=== PATIENT | female | born 1970 | race American Indian/Alaskan Native ===

== ENCOUNTER 2020-05-04 10:16 | Emergency (ER) | payer SELFPAY ==
[2020-05-04 10:30] VITALS: PULSE 82; RESP 24; TEMP 36.8; O2SAT 94; BMI 38.9
[2020-05-04 10:50] VITALS: BP 145/83; PULSE 81; RESP 20; O2SAT 93
--- NOTE | 2020-05-04 10:51 | XR_ITS ---
WS: [id number] Portable AP upright chest, 05/04/2020 Clinical Data: dyspnea/cough Comparison: None. Findings: No nodules, masses or effusions are seen. The heart is enlarged. The pulmonary vascularity is not increased. No pneumonia or pneumothorax is seen. XR/XR chest 1V portable [id number] Impression: Cardiomegaly.
[2020-05-04 11:04] LABS: ABG PCO2 39.7 mmHg (35-45); ABG PH Result 7.46 (7.35-7.45); Arterial Blood Gas Hematocrit 39.9 % (37-47); Blood Gas Allen Test Pos; Blood Gas Sample Site Radial, right; Blood Gas Sample Type Arterial; Carboxyhemoglobin 1.7 %THgb (0.4-20.1); HCO3 ABG 28.2 mmol/L (22-26); HGB O2 Sat 95.1 % (95-100); Ionized Calcium Level - ABG 1.2 mmol/L (1.1-1.4); Methemoglobin 0.8 % (0.4-1.5); Oxygen Saturation ABG 97.5; PO2 ABG 78.6 mmHg (80.0-100.0); Potassium Level - ABG 3.1 mmol/L (3.5-5.0)
[2020-05-04 11:08] LABS: Basophils # 0.1 10^3/uL (0.0-0.1); Basophils % 0.7 %; Eosinophils # 0.6 10^3/uL (0.0-0.8); Eosinophils % 5.8 %; Hematocrit 40.1 % (37.0-47.0); Lymphocytes # 1.7 10^3/uL (0.8-4.8); Lymphocytes % 17.5 %; Mean Corpuscular HGB Conc 32.4 g/dL (30.0-36.0); Mean Corpuscular Hemoglobin 27.6 pg (28.0-34.0); Mean Corpuscular Volume 85.1 fL (81-99); Mean Platelet Volume 8.8 fL (7.4-10.4); Monocytes # 0.5 10^3/uL (0.2-0.9); Monocytes % 4.8 %; Neutrophils # 6.64 10^3/uL (1.8-7.7); Neutrophils % 70.7 %; Nucleated Red Blood Cells % 0 %; Platelet Count 278 10^3/cmm (130-400); Red Blood Count 4.71 10^6/uL (4.1-5.3); Red Cell Distribution Width 14.5 % (12.1-15.1); White Blood Count 9.4 10^3/uL (4.0-10.0)
[2020-05-04 11:27] LABS: Alanine Aminotransferase 34 U/L (0-33); Albumin Level 4.3 g/dL (3.5-5.2); Alkaline Phosphatase 128 IU/L (35-105); Anion Gap 14.1 (5-19); Aspartate Amino Transferase 27 U/L (0-32); Blood Urea Nitrogen 11 mg/dL (6-20); Calcium 9.6 mg/dL (8.5-10.5); Carbon Dioxide 27 mmol/L (22-29); Chloride 96 mmol/L (98-107); Globulin 3.1 g/dL (1.3-4.6); Glomerular Filtration Rate 105.4 mL/min (90-130); Glucose 262 mg/dL (65-115); Osmolality Calculated 286 mOsm/kg (285-295); Potassium 3.1 mmol/L (3.5-5.1); Sodium 134 mmol/L (136-145); Total Bilirubin 0.2 mg/dL (0.15-1.2); Total Protein 7.4 g/dL (6.6-8.7)
--- NOTE | 2020-05-04 11:31 | ED_ITS ---
HPI - SOB/Dyspnea General: Chief Complaint: Shortness of Breath/Dyspnea Stated Complaint: SOB/Tightness Time Seen by Provider: 05/04/20 10:34 History of Present Illness: HPI Narrative: 49-year-old female presents to the emergency room with complaints of shortness of breath. Patient has chronic COPD she usually uses inhalers but she is not been able to tolerate inhaled corticosteroids so she has been on theophylline. She recently moved here and was not able to get established with a wound with been off her medicines for period of time. She denies any productive cough, no fever. MD elicited complaint: shortness of breath and cough Pertinent past history: COPD Onset (ago): week(s) Timing: constant Severity: moderate Exacerbating factors: exertion and coughing Relieving factors: rest and bronchodilators Known history of: COPD Associated symptoms: Reports chest congestion and cough; Deny abdominal pain, chest pain, diaphoresis, dizziness, extremity pain, fever(s), hemoptysis, lightheadedness, myalgias, nausea, orthopnea, palpitations, paresthesias, polydipsia, polyuria, rash, sense of impending doom, syncope or vomiting Treatment prior to arrival: none Review of Systems Const: Denies: fever(s) or diaphoresis ENMT: Denies: throat pain, ear or mastoid pain, nasal discharge or nasal congestion Card: Denies: chest pain, palpitations, lightheadedness, syncope or orthopnea Resp: Reports: chest congestion; Denies: hemoptysis GI: Denies: abdominal pain, nausea or vomiting : Denies: flank pain, difficulty voiding, dysuria, urinary frequency or urinary urgency Musc: Denies: extremity pain Skin/Breast: Denies: rash or pruritus Neuro: Denies: dizziness Endo: Denies: polyuria or polydipsia Physical Exam Const: COMMON NORMALS: no acute distress GENERAL APPEARANCE: cooperative and comfortable ORIENTATION/CONSCIOUSNESS: Yes awake, Yes oriented to person, Yes oriented to place and Yes oriented to time Neck/C-Spine: COMMON NORMALS: no JVD Lymph: LYMPHATIC: no lymphadenopathy noted and no lymphedema noted Resp: COMMON NORMALS: normal respiratory effort, No retractions and No use of accessory muscles AUSCULTATION: wheezes Cardio: COMMON NORMALS: no JVD, regular rate, regular rhythm and No murmurs present (Cardio) RATE: regular rate RHYTHM: regular rhythm GI: COMMON NORMALS: Soft to palpation and No hepatosplenomegaly present AUSCULTATION: Yes normoactive bowel sounds PALPATION: Yes Soft to palpation, No Tenderness to palpation present (GI), No Guarding due to palpation present (GI) and Yes No hepatosplenomegaly present Extremity: COMMON NORMALS: normal to inspection, capillary refill normal, no clubbing, cyanosis or edema, no calf tenderness and no pedal edema Neuro: SENSORIUM/ORIENTATION: Yes oriented to person, Yes oriented to place and Yes oriented to time Skin: COMMON NORMALS: no rashes or lesions noted GENERAL SKIN EXAM: no rashes or lesions noted Course Vital Signs: Vital signs: Vital Signs Temperature 98.3 F 05/04/20 10:30 Pulse Rate 82 05/04/20 14:48 Respiratory Rate 18 05/04/20 14:48 Blood Pressure 129/83 05/04/20 14:48 Pulse Oximetry 95 05/04/20 14:48 MDM - SOB/Dyspnea MDM Narrative: Medical decision making narrative: Try to get her set up for primary care. Wrote her prescription for Spiriva Respimat in addition to the Combivent. Talked about steroids however she is concerned about vaginal yeast infection candidiasis developing. Lab Data: Labs: Lab Results 05/04/20 05/04/20 05/04/20 Range/Units 10:50 10:50 10:55 WBC 9.4 (4.0-10.0) 10^3/ uL RBC 4.71 (4.1-5.3) 10^6/u L Hgb 13.0 (11.5-15.3) g/dL Hct 40.1 (37.0-47.0) % MCV 85.1 (81-99) fL MCH 27.6 L (28.0-34.0) pg MCHC 32.4 (30.0-36.0) g/dL RDW 14.5 (12.1-15.1) % Plt Count 278 (130-400) 10^3/c mm MPV 8.8 (7.4-10.4) fL Neut % (Auto) 70.7 % Lymph % (Auto) 17.5 % [place] % (Auto) 4.8 % Eos % (Auto) 5.8 % Baso % (Auto) 0.7 % Neut # (Auto) 6.64 (1.8-7.7) 10^3/u L Lymph # (Auto) 1.7 (0.8-4.8) 10^3/u L [place] # (Auto) 0.5 (0.2-0.9) 10^3/u L Eos # (Auto) 0.6 (0.0-0.8) 10^3/u L Baso # (Auto) 0.1 (0.0-0.1) 10^3/u L Nucleated RBC % (a uto) 0 % Nucleated RBCs # 0.0 /100WBC Specimen Type Arterial Sample Site Radial, right ABG pH 7.46 H (7.35-7.45) ABG pCO2 39.7 (35-45) mmHg ABG pO2 78.6 L (80.0-100.0) mmH g ABG HCO3 28.2 H (22-26) mmol/L ABG O2 Saturation 97.5 ABG Base Excess 4.0 H (-2.0-2.0) mmol/ L Zain Test Pos A-a O2 Gradient 3.0 L (5-10) mmHg Hematocrit 39.9 (37-47) % Hgb O2 Saturation 95.1 (95-100) % Carboxyhemoglobin 1.7 (0.4-20.1) %THgb Methemoglobin 0.8 (0.4-1.5) % Total Hemoglobin 13.0 (12-16) g/dL Ionized Calcium 1.2 (1.1-1.4) mmol/L O2 Delivery Device Not Reportable Rouge Mixer ID rp Sodium 134 L 137.0 (136-145) mmol/L Potassium 3.1 L 3.1 L (3.5-5.1) mmol/L Chloride 96 L (98-107) mmol/L Carbon Dioxide 27 (22-29) mmol/L Anion Gap 14.1 (5-19) BUN 11 (6-20) mg/dL Creatinine 0.6 (0.5-0.9) mg/dL GFR Calculation 105.4 (90-130) mL/min Glucose 262 H 244.0 H (65-115) mg/dL Calculated Osmolal ity 286 (285-295) mOsm/k g Calcium 9.6 (8.5-10.5) mg/dL Total Bilirubin 0.2 (0.15-1.2) mg/dL AST 27 (0-32) U/L ALT 34 H (0-33) U/L Alkaline Phosphata se 128 H (35-105) IU/L Total Protein 7.4 (6.6-8.7) g/dL Albumin 4.3 (3.5-5.2) g/dL Globulin 3.1 (1.3-4.6) g/dL Discharge Plan Discharge Patient Disposition: Home Clinical Impression: Acute exacerbation of chronic obstructive airways disease Condition: Stable Prescriptions: New ipratropium-albuterol 0.5 mg-3 mg(2.5 mg base)/3 mL solution for nebulization 3 ml inhalation Q6H PRN (Reason: shortness of breath or wheezing) Qty: 180 RF: 0 Spiriva Respimat 1.25 mcg/actuation mist 2 inh inhalation DAILY Qty: 4 RF: 0 Discharge Orders: Discharge ED (Routine); Ordered 05/04/20 Ordered By: Deonte Morataya Discharge Diet: Usual diet Discharge Activity: Increase activity as tolerated Coding Level of Care Code ED Senior Reservations Agent for Chg Fwd Exam Comprehensive
[2020-05-04 12:17] VITALS: BP 132/70; PULSE 81; RESP 20; O2SAT 94
[2020-05-04 12:18] VITALS: PULSE 77; RESP 17; O2SAT 95
[2020-05-04] MEDS: ipratropium-albuterol 3 mL Neb INHALATION (12:18)
[2020-05-04 12:25] VITALS: PULSE 77
--- NOTE | 2020-05-04 13:15 | ECG_ITS ---
[facility] Test Date: 2020-05-04 Pat Name: Any Loco Department: Room: Gender: Female Chief Clerk: : 1970 Requested By: Deonte Cazares Order Number: [id number] Pascual MD: Arun Espino M.D. Measurements Intervals [place] Rate: 80 P: 44 AR: 172 QRS: 9 QRSD: 93 T: 28 QT: 366 QTc: 422 Interpretive Statements SINUS RHYTHM MODERATE VOLTAGE CRITERIA FOR LVH, CONSIDER NORMAL VARIANT [MEETS CRITERIA IN ONE OF: R(aVL), S(V1), R(V5), R(V5/V6)+S(V1)] NONSPECIFIC ST & T-WAVE ABNORMALITY No previous ECG available for comparison Electronically Signed On 05-04-2020 16:03:04 COMPOSITE TECHNICIAN by Arun Espino M.D. [id number]
[2020-05-04 14:48] VITALS: BP 129/83; PULSE 82; RESP 18; O2SAT 95
== END 2020-05-04 14:50 | disposition home or self-care (01) ==
PROVIDERS: Emergency Provider Family Medicine
DX: J44.1 Chronic obstructive pulmonary disease with (acute) exacerbation (principal); R06.02 Shortness of breath
CPT/HCPCS: 71045; 80051; 80053; 82330; 82805; 83605; 85025; 93005; 94640; 96374; 99283; J2930

== ENCOUNTER 2020-07-09 18:18 | Emergency (ER) | payer SELFPAY ==
[2020-07-09 18:22] VITALS: BP 148/88; PULSE 94; RESP 18; TEMP 37.1; O2SAT 96; BMI 37.2
--- NOTE | 2020-07-09 18:35 | ED_ITS ---
HPI - Allergic Reaction General: Chief complaint: Allergic Reaction Stated complaint: poss allergic reaction/difficulty breathing Time Seen by Provider: 07/09/20 18:24 Source: patient Mode of arrival: ambulatory Limitations: no limitations History of Present Illness: HPI narrative: 49-year-old female states that she did not feel well ago and started having a rash to her extremities and her trunk. States she is feeling slightly short of breath and has no swelling in her face or her throat. She denies any difficulty swallowing. Patient denies any fevers. She denies any chest pain. She states that she has had allergic reactions in the past but is unsure what she was allergic to food twice. Denies any worsening improving factors. She did take a Benadryl at home. Associated symptoms: Deny abdominal pain, nausea or vomiting Review of Systems Const: Denies: fever(s), chills, body aches or change in appetite Eyes: Denies: blurry vision or eye discomfort ENMT: Denies: throat pain or dental pain Card: Denies: chest pain Resp: Denies: dyspnea GI: Denies: abdominal pain, nausea, vomiting or diarrhea : Denies: dysuria Musc: Denies: neck pain or back pain Skin/Breast: Denies: rash Neuro: Denies: headache(s) Psych: Denies: depression Freeman/Lymph: Denies: easy bruising All/Imm: Reports: urticaria Physical Exam Const: COMMON NORMALS: no acute distress, patient oriented x3 and healthy appearing HENMT: COMMON NORMALS: normocephalic and atraumatic HEAD & SCALP: normocephalic and atraumatic Eye: COMMON NORMALS: Equal, round and reactive pupils present and EOMs intact bilaterally PUPIL: Yes Equal, round and reactive pupils present Neck/C-Spine: COMMON NORMALS: full ROM and supple Chest: COMMONS NORMALS: normal inspection of the chest and normal palpation of entire chest wall Resp: COMMON NORMALS: normal respiratory effort, No retractions, No use of accessory muscles and clear to auscultation bilaterally AUSCULTATION: clear to auscultation bilaterally Cardio: COMMON NORMALS: regular rate, regular rhythm and No murmurs present (Cardio) RATE: regular rate RHYTHM: regular rhythm GI: COMMON NORMALS: Normal to inspection, nondistended, normoactive bowel sounds present, Soft to palpation, non-tender and no masses PALPATION: Yes Soft to palpation Extremity: COMMON NORMALS: normal to inspection and full ROM Neuro: COMMON NORMALS: patient oriented x3, moves all extremities and no focal motor deficits Psych: COMMON NORMALS: mental status grossly normal, Normal thought process present and cooperative THOUGHT PROCESS: Normal thought process present Skin: COMMON NORMALS: no wounds NARRATIVE SKIN EXAM: Hives to his extremities and trunk Course Vital Signs: Vital signs: Vital Signs Temperature 98.8 F 07/09/20 18:22 Pulse Rate 86 07/09/20 19:21 Respiratory Rate 18 07/09/20 19:21 Blood Pressure 148/88 07/09/20 18:22 Pulse Oximetry 96 07/09/20 19:21 MDM - Allergic Reaction MDM Narrative: Medical decision making narrative: Patient presents here with allergic reaction with hives. She had no throat swelling or wheezing. Her symptoms since resolved with IV Benadryl and steroids. Will prescribe her prednisone along with an EpiPen for home. She is return if worsening. She understands and agrees the plan. Discharge Plan Discharge Patient Disposition: Home Clinical Impression: Allergic reaction Qualifiers: Encounter type: initial encounter Qualified Code(s): T78.40XA - Allergy, unspecified, initial encounter Condition: Stable Prescriptions: New prednisone 50 mg tablet 50 mg PO DAILY Qty: 5 RF: 0 EpiPen 0.3 mg/0.3 mL auto-injector 0.3 mg IM Q10M PRN (Reason: anaphylaxis) Qty: 2 RF: 0 No Action ipratropium-albuterol 0.5 mg-3 mg(2.5 mg base)/3 mL solution for nebulization 3 ml inhalation Q6H PRN (Reason: shortness of breath or wheezing) Qty: 180 RF: 0 Spiriva Respimat 1.25 mcg/actuation mist 2 inh inhalation DAILY Qty: 4 RF: 0 Discharge Orders: Discharge ED (Routine); Ordered 07/09/20 Ordered By: Rocael Buckner Discharge Diet: Advance as tolerated Discharge Activity: Resume usual activity Patient Instructions: Allergic Reaction, Urticaria (ED) Coding Level of Care Code ED International Marketing Executive for Chg Fwd Exam Comprehensive
[2020-07-09] MEDS: famotidine 20 mg/2 mL INJ 40 MG IVP (18:43)
[2020-07-09] MEDS: diphenhydrAMINE 50 mg/mL SDV 1mL IVP (18:43)
[2020-07-09 19:21] VITALS: PULSE 86; RESP 18; O2SAT 96
== END 2020-07-09 19:31 | disposition home or self-care (01) ==
PROVIDERS: Emergency Provider Emergency Medicine
DX: T78.40XA Allergy, unspecified, initial encounter (principal)
CPT/HCPCS: 96374; 96375; 99283; J1200; J2930; J3490

== ENCOUNTER 2020-08-01 21:46 | Emergency (ER) | payer SELFPAY ==
[2020-08-01 21:49] VITALS: BP 213/98; PULSE 82; RESP 18; TEMP 36.6; O2SAT 97; BMI 37.2
--- NOTE | 2020-08-01 22:17 | XRR_ITS ---
PROCEDURE INFORMATION: Exam: XR Chest Exam date and time: 08/01/2020 10:19 PM Age: 49 years old Clinical indication: Shortness of breath; Additional info: SOB TECHNIQUE: Imaging protocol: XR of the chest. Views: 2 views. COMPARISON: CR XR chest 1V portable [id number] 05/04/2020 10:50 AM FINDINGS: Lungs: Lungs are clear. There is no pulmonary vascular congestion. Pleural spaces: Unremarkable. No pleural effusion. No pneumothorax. Heart/Mediastinum: Heart is upper limits normal in size. Bones/joints: There is slight wedging of T4 which appears chronic.. XR/XR chest 2V* [id number] IMPRESSION: No acute infiltrate.
--- NOTE | 2020-08-01 23:20 | ECG_ITS ---
[facility] Test Date: 2020-08-01 Pat Name: Any Loco Department: Room: Gender: Female [employer] Impregnating Range Tender: : 1970 Requested By: Merced Melton Order Number: [id number] Pascual MD: Shayna Valles M.D. Measurements Intervals [place] Rate: 71 P: 42 MD: 160 QRS: 16 QRSD: 90 T: 16 QT: 381 QTc: 415 Interpretive Statements SINUS RHYTHM MODERATE ST DEPRESSION [0.05+ mV ST DEPRESSION] Compared to ECG 05/04/2020 10:32:20 ST (T wave) deviation now present T-wave abnormality no longer present Electronically Signed On 08-02-2020 18:23:26 CDT by Shayna Valles M.D. [id number]
[2020-08-01 23:21] VITALS: BP 171/79; PULSE 74; RESP 17; O2SAT 95
--- NOTE | 2020-08-01 23:33 | ED_ITS ---
HPI - SOB/Dyspnea General: Chief Complaint: Shortness of Breath/Dyspnea Stated Complaint: COPD EXACERBATION Time Seen by Provider: 08/01/20 23:01 Source: patient Mode of arrival: ambulatory Limitations: no limitations History of Present Illness: HPI Narrative: 49 yo female patient presents with SOB. Pt states she has COPD and feels like a typical flare up she gets. Pt states it has worsened over the last few days. Pt states her cough is making her wet herself. Pt denies any chest pain but states she is sore from coughing. pt states her cough is non productive. Pt denies any fever or any other complaints Associated symptoms: Deny abdominal pain, chest congestion, chest pain, diaphoresis, dizziness, extremity pain, fever(s), hemoptysis, lightheadedness, nausea, orthopnea, palpitations, polydipsia, polyuria, syncope or vomiting Review of Systems Const: Denies: fever(s), chills, body aches, change in appetite, change in weight, fatigue, malaise or diaphoresis Eyes: Denies: change in vision, blurry vision, blind spots, photophobia, eye discomfort, eye discharge, eye redness, floaters or seeing flashes ENMT: Denies: throat pain, uvular edema, enlarged tonsils, odynophagia, hoarseness, mouth pain, swelling of lips/tongue, oral sores, bleeding gums, dental pain, dry mouth, ear or mastoid pain, ear discharge, change in hearing, tinnitus, disequilibrium, nasal discharge, nasal congestion, post nasal drip or sinus pain Card: Denies: chest pain, palpitations, irregular heart rhythm, edema, swelling of feet/ankles, lightheadedness, syncope, pre-syncope, dyspnea on exertion, orthopnea, leg pain with exertion or acrocyanosis Resp: Reports: dyspnea and non-productive cough; Denies: productive cough, wheezing, stridor, pain on inspiration, change in phlegm color, hemoptysis or chest congestion GI: Denies: abdominal pain, nausea, vomiting, hematemesis, dysphagia, diarrhea, constipation, GI cramping, change in bowel habits or rectal pain : Denies: flank pain, difficulty voiding, dysuria, urinary frequency, urinary urgency, urinary hesitancy or hematuria Musc: Denies: neck pain, back pain, extremity pain, extremity swelling, joint pain, joint swelling, joint redness, joint warmth or deformity Skin/Breast: Denies: rash, pruritus, erythema, sores, new lesions, changes in skin color or dry skin Neuro: Denies: headache(s), numbness in extremities, weakness in extremities, sensory changes, lack of coordination, difficulty walking, frequent falls, dizziness, vertigo, confusion, behavioral changes, Slurred speech present, difficulty communicating thoughts or seizure-like activity Psych: Denies: anxiety, depression, suicidal ideation or homicidal ideation Endo: Denies: polyuria, polydipsia, tired all the time, cold intolerance, excessive sweating, flushing, hot flashes or heat intolerance Freeman/Lymph: Denies: easy bruising, easy bleeding, petechiae, purpura, enlarged lymph nodes or tender lymph nodes All/Imm: Denies: urticaria, throat swelling, tongue swelling, facial swelling, acute wheezing or itchy eyes Physical Exam Const: COMMON NORMALS: no acute distress, average body habitus, patient oriented x3, no limitations, healthy appearing, alert and well nourished HENMT: COMMON NORMALS: normocephalic, atraumatic, hearing grossly normal bilaterally, external ears normal, EAC's normal, TM's normal bilaterally, Normal external nose present, Normal nasal mucous membranes and turbinates present, moist oral mucous membranes, oropharynx normal, dentition normal and gingiva normal HEAD & SCALP: normocephalic and atraumatic NOSE: Normal external nose present and Normal nasal mucous membranes and turbinates present EXTERNAL EAR: Yes external ears normal EXTERNAL AUDITORY CANAL: EAC's normal TYMPANIC MEMBRANE: TM's normal bilaterally THROAT: no uvular edema Eye: COMMON NORMALS: Equal, round and reactive pupils present, EOMs intact bilaterally and conjunctivae normal CONJUNCTIVA: Yes conjunctivae normal PUPIL: Yes Equal, round and reactive pupils present Neck/C-Spine: COMMON NORMALS: full ROM and no JVD Lymph: LYMPHATIC: no lymphadenopathy noted and no lymphedema noted Chest: COMMONS NORMALS: normal inspection of the chest, normal palpation of entire chest wall, normal inspection of the breasts and normal palpation of the breasts Breast/axilla inspection: Yes normal inspection of the breasts BREAST/AXILLA PALPATION: Yes normal palpation of the breasts Resp: COMMON NORMALS: normal respiratory effort, No retractions, No use of accessory muscles and percussion normal EFFORT & INSPECTION: Yes able to speak in complete sentences and Yes audible wheezes PERCUSSION: percussion normal Cardio: COMMON NORMALS: no JVD, regular rate, regular rhythm, S1 normal heart sound present, S2 normal heart sound present, No gallops present (Cardio), No clicks present (Cardio), No murmurs present (Cardio), No rub (Cardio) and Peripheral pulses 2+ throughout RATE: regular rate RHYTHM: regular rhythm HEART SOUNDS: S1 normal heart sound present and S2 normal heart sound present PERIPHERAL PULSES: Peripheral pulses 2+ throughout GI: COMMON NORMALS: Normal to inspection, nondistended, normoactive bowel sounds present, Soft to palpation, non-tender, No hepatosplenomegaly present, no masses and no bruits PALPATION: Yes Soft to palpation and Yes No hepatosplenomegaly present Neuro: COMMON NORMALS: patient oriented x3, CN's II-XII intact bilaterally, moves all extremities, no focal motor deficits and no sensory deficits noted SENSORIUM/ORIENTATION: Yes alert Course Vital Signs: Vital signs: Vital Signs Temperature 97.9 F 08/01/20 21:49 Pulse Rate 77 08/02/20 00:28 Respiratory Rate 17 08/01/20 23:48 Blood Pressure 153/79 08/01/20 23:48 Pulse Oximetry 94 08/02/20 00:24 MDM - SOB/Dyspnea MDM Narrative: Medical decision making narrative: Pt is well appearing non toxic and in no acute distress. Pt denied any hest pain trop was normal. Pt chest xray revealed no evidence of infiltrate or onsolidation. Pt was not hypoxic. pt was given solu medrol IV and duo neb treatment and had clinical improvement of symptoms. I feel patient is appropriate for outpatient management. I will send patient home with neb treatments, short course of steroids and antibiotics. I will have patient follow up with PCP and pt advised to quit smoking resources were offered Lab Data: Labs: Lab Results 08/01/20 08/01/20 08/01/20 Range/Units 23:44 23:44 23:44 WBC 11.0 H (4.0-10.0) 10^3/ uL RBC 4.47 (4.1-5.3) 10^6/u L Hgb 12.4 (11.5-15.3) g/dL Hct 38.1 (37.0-47.0) % MCV 85.2 (81-99) fL MCH 27.7 L (28.0-34.0) pg MCHC 32.5 (30.0-36.0) g/dL RDW 13.5 (12.1-15.1) % Plt Count 344 (130-400) 10^3/c mm MPV 8.9 (7.4-10.4) fL Neut % (Auto) 67.8 % Lymph % (Auto) 21.7 % [place] % (Auto) 4.7 % Eos % (Auto) 4.4 % Baso % (Auto) 0.6 % Neut # (Auto) 7.46 (1.8-7.7) 10^3/u L Lymph # (Auto) 2.4 (0.8-4.8) 10^3/u L [place] # (Auto) 0.5 (0.2-0.9) 10^3/u L Eos # (Auto) 0.5 (0.0-0.8) 10^3/u L Baso # (Auto) 0.1 (0.0-0.1) 10^3/u L Nucleated RBC % (a uto) 0 % Nucleated RBCs # 0.0 /100WBC Sodium 138 (136-145) mmol/L Potassium 3.7 (3.5-5.1) mmol/L Chloride 100 (98-107) mmol/L Carbon Dioxide 26 (22-29) mmol/L Anion Gap 15.7 (5-19) BUN 10 (6-20) mg/dL Creatinine 0.5 (0.5-0.9) mg/dL GFR Calculation 130.1 H (90-130) mL/min Glucose 205 H (65-115) mg/dL Calculated Osmolal ity 291 (285-295) mOsm/k g Calcium 8.9 (8.5-10.5) mg/dL Total Bilirubin 0.3 (0.15-1.2) mg/dL AST 29 (0-32) U/L ALT 33 (0-33) U/L Alkaline Phosphata se 117 H (35-105) IU/L Troponin T Gen 5 n g/L 6 (0-10) ng/L NT-Pro-B Natriuret Pep 278 H (0-125) pg/mL Total Protein 6.8 (6.6-8.7) g/dL Albumin 4.3 (3.5-5.2) g/dL Globulin 2.5 (1.3-4.6) g/dL Discharge Plan Discharge Patient Disposition: Home Clinical Impression: COPD (chronic obstructive pulmonary disease) Qualifiers: COPD type: COPD with acute exacerbation Qualified Code(s): J44.1 - Chronic obstructive pulmonary disease with (acute) exacerbation Condition: Stable Prescriptions: New ipratropium bromide 0.02 % solution 0.5 mg inhalation Q8H PRN (Reason: shortness of breath or wheezing) 30 Days RF: 0 prednisone 20 mg tablet 20 mg PO BID 5 Days Qty: 10 RF: 0 doxycycline hyclate 100 mg capsule 100 mg PO BID 10 Days Qty: 20 RF: 0 No Action prednisone 50 mg tablet 50 mg PO DAILY Qty: 5 RF: 0 EpiPen 0.3 mg/0.3 mL auto-injector 0.3 mg IM Q10M PRN (Reason: anaphylaxis) Qty: 2 RF: 0 ipratropium-albuterol 0.5 mg-3 mg(2.5 mg base)/3 mL solution for nebulization 3 ml inhalation Q6H PRN (Reason: shortness of breath or wheezing) Qty: 180 RF: 0 Spiriva Respimat 1.25 mcg/actuation mist 2 inh inhalation DAILY Qty: 4 RF: 0 Discharge Orders: Discharge ED (Routine); Ordered 08/02/20 Ordered By: Merced Melton Discharge Diet: Advance as tolerated Discharge Activity: Increase activity as tolerated Patient Instructions: Opioid Safety Activity Restrictions/Additional Instructions: Please take meds as directed Please follow up with PCP in 1-2 days Please stop smoking Please return to ER with any worsening symptoms or chest pain or any other concerning symptoms Coding Level of Care Code ED Roll Scale Worker for Rere Fwd Exam Comprehensive
[2020-08-01 23:48] VITALS: BP 153/79; PULSE 78; RESP 17; O2SAT 94
[2020-08-01 23:51] LABS: Basophils # 0.1 10^3/uL (0.0-0.1); Basophils % 0.6 %; Eosinophils # 0.5 10^3/uL (0.0-0.8); Eosinophils % 4.4 %; Hematocrit 38.1 % (37.0-47.0); Hemoglobin 12.4 g/dL (11.5-15.3); Lymphocytes # 2.4 10^3/uL (0.8-4.8); Lymphocytes % 21.7 %; Mean Corpuscular HGB Conc 32.5 g/dL (30.0-36.0); Mean Corpuscular Hemoglobin 27.7 pg (28.0-34.0); Mean Corpuscular Volume 85.2 fL (81-99); Mean Platelet Volume 8.9 fL (7.4-10.4); Monocytes # 0.5 10^3/uL (0.2-0.9); Monocytes % 4.7 %; Neutrophils # 7.46 10^3/uL (1.8-7.7); Neutrophils % 67.8 %; Nucleated Red Blood Cells % 0 %; Platelet Count 344 10^3/cmm (130-400); Red Blood Count 4.47 10^6/uL (4.1-5.3); Red Cell Distribution Width 13.5 % (12.1-15.1)
[2020-08-02 00:11] LABS: Troponin T (5th) Once 6 ng/L (0-10)
[2020-08-02 00:17] LABS: Alanine Aminotransferase 33 U/L (0-33); Albumin Level 4.3 g/dL (3.5-5.2); Alkaline Phosphatase 117 IU/L (35-105); Anion Gap 15.7 (5-19); Aspartate Amino Transferase 29 U/L (0-32); Blood Urea Nitrogen 10 mg/dL (6-20); Calcium 8.9 mg/dL (8.5-10.5); Carbon Dioxide 26 mmol/L (22-29); Chloride 100 mmol/L (98-107); Globulin 2.5 g/dL (1.3-4.6); Glomerular Filtration Rate 130.1 mL/min (90-130); Glucose 205 mg/dL (65-115); NT Pro B Type Natriuretic Pept 278 pg/mL (0-125); Osmolality Calculated 291 mOsm/kg (285-295); Potassium 3.7 mmol/L (3.5-5.1); Sodium 138 mmol/L (136-145); Total Bilirubin 0.3 mg/dL (0.15-1.2); Total Protein 6.8 g/dL (6.6-8.7)
[2020-08-02 00:24] VITALS: PULSE 75; O2SAT 94
[2020-08-02] MEDS: ipratropium-albuterol 3 mL Neb INHALATION (00:24)
[2020-08-02 00:28] VITALS: PULSE 77
[2020-08-02 01:35] VITALS: BP 148/76; PULSE 82; RESP 17; TEMP 36.6; O2SAT 94
== END 2020-08-02 01:36 | disposition home or self-care (01) ==
PROVIDERS: Emergency Provider Registered Nurse
DX: J44.1 Chronic obstructive pulmonary disease with (acute) exacerbation (principal)
CPT/HCPCS: 71046; 80053; 83880; 84484; 85025; 93005; 94640; 96374; 99283; J2930

== ENCOUNTER 2020-08-30 20:12 | Emergency (ER) | payer SELFPAY ==
[2020-08-30 20:25] VITALS: BP 114/72; PULSE 98; RESP 18; TEMP 36.5; O2SAT 93; BMI 37.7
[2020-08-30] MEDS: predniSONE 20 mg Tablet 60 MG PO (20:51)
[2020-08-30 20:53] VITALS: O2SAT 95
--- NOTE | 2020-08-30 22:24 | ED_ITS ---
HPI - Allergic Reaction General: Chief complaint: Allergic Reaction Stated complaint: ALLERGIC REACTION Time Seen by Provider: 08/30/20 20:41 History of Present Illness: HPI narrative: Patient said she had allergic reaction not sure which she exposed to. She took some Pepcid and Benadryl at home she is doing much better now. She is says that she does not have an EpiPen. She is not had any wheezing rash is gone and her lips are back to normal she says. complaint: allergic reaction Onset (ago): hour(s) Exposure: unknown Associated symptoms: Reports itching and rash; Deny abdominal pain, nausea or vomiting Severity: mild Treatment prior to arrival: benadryl and other (Pepcid) Previous Allergic Reaction History: prior ED visit(s) Review of Systems Const: Denies: fever(s), chills or body aches Eyes: Denies: change in vision or blurry vision ENMT: Denies: throat pain or nasal congestion Card: Denies: chest pain or dyspnea on exertion Resp: Denies: dyspnea, productive cough or non-productive cough GI: Denies: abdominal pain, nausea or vomiting Musc: Denies: extremity pain Skin/Breast: Reports: rash and other (Lipsr slightly blue earlier this evening) Neuro: Denies: headache(s) Psych: Denies: anxiety or depression Freeman/Lymph: Denies: easy bruising Physical Exam Const: COMMON NORMALS: no acute distress, average body habitus and patient oriented x3 HENMT: COMMON NORMALS: normocephalic HEAD & SCALP: normal to inspection and normocephalic FACE & SINUS: normal facial exam Eye: COMMON NORMALS: conjunctivae normal GENERAL EYE: appearance normal, both eyes and all related structures CONJUNCTIVA: Yes conjunctivae normal Neck/C-Spine: COMMON NORMALS: no JVD Chest: COMMONS NORMALS: normal inspection of the chest Resp: COMMON NORMALS: normal respiratory effort and clear to auscultation bilaterally AUSCULTATION: clear to auscultation bilaterally Cardio: COMMON NORMALS: no JVD, regular rate and regular rhythm RATE: regular rate RHYTHM: regular rhythm GI: COMMON NORMALS: Normal to inspection, nondistended, normoactive bowel sounds present Extremity: COMMON NORMALS: normal to inspection and full ROM Neuro: COMMON NORMALS: patient oriented x3 Course Vital Signs: Vital signs: Vital Signs Temperature 97.7 F 08/30/20 20:25 Pulse Rate 98 08/30/20 20:25 Respiratory Rate 18 08/30/20 20:25 Blood Pressure 114/72 08/30/20 20:25 Pulse Oximetry 95 08/30/20 20:53 MDM - Allergic Reaction MDM Narrative: Medical decision making narrative: Patient was much better when she got checked in. No blueness to her l lips, no shortness of breath, no rash now. Patient is followed primary care. She is to get some men together by EpiPen. Discharge Plan Discharge Patient Disposition: Home Clinical Impression: Allergic reaction Qualifiers: Encounter type: initial encounter Qualified Code(s): T78.40XA - Allergy, unspecified, initial encounter Condition: Stable Prescriptions: New prednisone 20 mg tablet 20 mg PO DAILY Qty: 7 RF: 0 No Action prednisone 50 mg tablet 50 mg PO DAILY Qty: 5 RF: 0 EpiPen 0.3 mg/0.3 mL auto-injector 0.3 mg IM Q10M PRN (Reason: anaphylaxis) Qty: 2 RF: 0 ipratropium-albuterol 0.5 mg-3 mg(2.5 mg base)/3 mL solution for nebulization 3 ml inhalation Q6H PRN (Reason: shortness of breath or wheezing) Qty: 180 RF: 0 Spiriva Respimat 1.25 mcg/actuation mist 2 inh inhalation DAILY Qty: 4 RF: 0 ipratropium bromide 0.02 % solution 0.5 mg inhalation Q8H PRN (Reason: shortness of breath or wheezing) 30 Days RF: 0 Discharge Orders: Discharge ED (Routine); Ordered 08/30/20 Ordered By: Ruslan Reyes Discharge Diet: Usual diet Discharge Activity: Resume usual activity Patient Instructions: Allergic Reaction Activity Restrictions/Additional Instructions: Avoid all allergens if possible. Continue take Benadryl as needed. Take prescription as prescribed follow-up your family medical provider if no significant improvement. Get EpiPen filled when available. Coding Level of Care Code ED Patient Relations Manager for Rere [facility]wmatt Exam Comprehensive
== END 2020-08-30 20:54 | disposition home or self-care (01) ==
PROVIDERS: Emergency Provider Nurse Practitioner Family
DX: T78.40XA Allergy, unspecified, initial encounter (principal)
CPT/HCPCS: 99282; J7512